=== PATIENT | male | born 1955 | race Native Hawaiian/Other Pacific Islander ===

== ENCOUNTER 2017-12-19 08:20 | Outpatient (CLI) | payer BC | END 2017-12-19 19:53 | disposition home or self-care (01) | LOC: CT 08:20 | DX: R07.9 Chest pain, unspecified (principal) | CPT/HCPCS: 36415; 82565; 84520; Q9963 ==

== ENCOUNTER 2018-02-15 14:02 | Emergency (ER) | payer BC ==
[~2018-02-15] VITALS: Ht 175.3 cm; Wt 95.3 kg
[2018-02-15 14:34] LABS: PLATELET COUNT 271 K/uL (142-355)
[2018-02-15 14:43] LABS: SODIUM 141 mmol/L (136-145)
[2018-02-15 17:00] VITALS: BP 109/67; TEMP 97.9
== END 2018-02-15 17:00 | disposition home or self-care (01) ==
LOC: ED 14:02
PROVIDERS: Emergency Medicine
DX: R07.89 Other chest pain (principal)
CPT/HCPCS: 80053; 82550; 82553; 84484; 85027; 93005; 99284